=== PATIENT | male | born 1965 | race Caucasian/White ===

== ENCOUNTER → 2022-03-12 | Outpatient (CLI) | payer OTHER ==
[~2022-03-12] MED LIST: LEXISCAN IV ONE
--- NOTE | 2022-03-12 14:45 | PCM.ECHO ---
APPROVED REPORT EXAM: Comprehensive 2D, Doppler, and color-flow Echocardiogram. Patient Location: OUT-PATIENT Indications Dyspnea Chest Pain 2D Dimensions LVOT Diameter 2.37 (1.8-2.4cm) LVEF(%) 65.39 (>50%) M-Mode Dimensions RVDd 1.40 (2.1-3.2cm) Left Atrium(MM) 2.95 (2.5-4.0cm) IVSd 1.00 (0.7-1.1cm) Aortic Root 2.75 (2.2-3.7cm) LVDd 5.00 (4.0-5.6cm) Aortic Cusp Exc 1.75 (1.5-2.0cm) PWd 0.75 (0.7-1.1cm) MV EPSS 0.69 (<0.5cm) IVSs 1.70 cm FS (%) 26.50 % LVDs 3.70 (2.0-3.8cm) ESV(Teich) 58.39 ml PWs 1.30 cm LVEF(%) 51.65 (>50%) Volumes Biplane 2D LV Volumes Biplane 2D LA Volumes LVEDv A4C 107.25 mL LA ESV Index LVESv A4C 37.12 mL Aortic Valve AoV Peak Lg. 0.80 m/s AoV VTI 16.05 cm AO Peak GR. 2.85 mmHg AO Mean GR. 1.45 mmHg LVOT VTI 17.02 cm LVOT Peak Lg. 0.74 m/s STEVE(VTI)/BSA 4.66 cm2/m2 STEVE (VTI) 4.66 cm2 Mitral Valve MV E Velocity 1.05m/s MR Peak Gr. 115.05mmHg MV A Velocity 0.95m/s TDI Lateral E' P. V 0.08m/s Medial E' P. V 0.09m/s Pulmonary Valve PV Peak Velocity 0.45m/s PV Peak Grad. 0.95mmHg RVOT VTI 12.97cm Tricuspid Valve TR P. Velocity 2.15m/s RAP ESTIMATE 10.00mmHg TR Peak Gr. 18.59mmHg RVSP 28.59mmHg LEFT VENTRICLE The left ventricle is normal size. The left ventricular systolic function is normal. The left ventricular ejection fraction is within the normal range. There is normal left ventricular wall thickness. There is normal LV segmental wall motion. There is no ventricular septal defect visualized. No left ventricle thrombus noted on this study. LVEF is 60-65%. RIGHT VENTRICLE The right ventricle is normal size. The right ventricular systolic function is normal. There is normal right ventricular wall thickness. ATRIA The left atrium size is normal. The right atrium size is normal. Atrial septum is bowed toward the right, consistent with elevated left atrial pressures. AORTIC VALVE The aortic valve is normal in structure. There is no aortic valvular stenosis. No aortic regurgitation is present. There is no aortic valvular vegetation. MITRAL VALVE The mitral valve is normal in structure. There is no mitral valve stenosis. Moderate mitral regurgitation. There is no evidence of mitral valve vegetations. TRICUSPID VALVE The tricuspid valve is normal in structure. There is no tricuspid valve stenosis. Mild tricuspid regurgitation. PULMONIC VALVE Pulmonic valve is not well visualized. There is no pulmonic valvular stenosis. Mild pulmonic regurgitation. GREAT VESSELS The aortic root is normal in size. Pulmonary artery is not well visualized. Aortic arch is not well visualized. The IVC is normal in size and collapses >50% with inspiration. PERICARDIUM There is no pericardial effusion. There is no pleural effusion. Other Information Study Quality: Fair <Conclusion> The left ventricular systolic function is normal. LVEF is 60-65%. Moderate mitral regurgitation. Mild tricuspid regurgitation. Mild pulmonic regurgitation. Electronically signed by : BENITA ZAMUDIO. 03/12/2022 14:45:09
--- NOTE | 2022-03-13 03:26 | STRESS ---
DATE OF SERVICE: 03/12/2022 DICTATOR NAME: BENITA ZAMUDIO CARDIAC STRESS TEST INDICATION: Chest pain. FINDINGS: Baseline EKG shows normal sinus rhythm with poor R-wave progression, cannot exclude an anterior septal infarct. Stress EKG shows normal sinus rhythm, unchanged from baseline. At the end of recovery, EKG shows normal sinus rhythm, unchanged from baseline. Baseline blood pressure is 138/83 and remained the same during stress. At the end of recovery, the blood pressure was 124/79. Baseline heart rate 69 beats per minute and adela to 84 beats per minute during stress. At the end of recovery, the heart rate is 88 beats per minute. Blood pressure and heart rate were appropriate for stress. There were no significant symptoms noted during stress. There were no arrhythmias noted during stress. EKG portion of stress test is negative for myocardial ischemia. Nuclear images were obtained with a rest dose of 11.65 mCi technetium-99 sestamibi, and a stress dose of 35.9 mCi technetium 99 sestamibi. Nuclear images revealed a moderate-sized area of reversible perfusion defect involving the inferior wall suggestive of myocardial ischemia. There is no evidence of myocardial infarction. Left ventricular ejection fraction is 58%. EDV is 82 mL, ESV is 34 mL. The left ventricle is normal in size. Gated motion images showed normal wall motion across all segments of the left ventricle. TID is 1.2. There is evidence of diaphragmatic attenuation artifact. IMPRESSION: 1. There is a moderate-sized area of reversible perfusion defect involving the septal wall suggestive of myocardial ischemia. 2. There is no evidence of myocardial infarction. 3. Diaphragmatic attenuation artifact is present. 4. This is an abnormal study. Recommend left heart catheterization. Ángela DIAS D.O. DR: SAM/NAZARIO TID: [id number] RECEIPT: [id number]
== END | disposition home or self-care (01) ==
LOC: RAD 09:45
PROVIDERS: ATTEND Internal Medicine Interventional Cardiology
DX: I08.8 Other rheumatic multiple valve diseases (principal); R07.9 Chest pain, unspecified; R06.02 Shortness of breath
CPT/HCPCS: 78452; 93017; 93306; A9500; J2785

== ENCOUNTER 2022-03-27 09:10 | Day surgery (SDC) | payer OTHER ==
[2022-03-21 14:10] VITALS: BP 122/78
--- NOTE | 2022-03-21 14:28 | PCM.EKG ---
Formerly [facility] Test Date: 2022-03-21 Test Time: 14:18:38 Pat Name: JERROD MOORE Department: Room: Gender: M Road Contractor: CHANTE : 1965 Requested By: BENITA ZAMUDIO Order Number: [id number] Reading MD: Measurements Intervals [place] Rate: 67 P: 53 MS: 188 QRS: 78 QRSD: 94 T: 72 QT: 410 QTc: 433 Interpretive Statements Normal sinus rhythm No previous ECG available for comparison Please click the below link to view image of tracing.
[2022-03-21 14:33] LABS: BASOPHIL # 0.1 10^3/uL (0.0-0.1); EOSINOPHIL # 0.2 10^3/uL (0.0-0.2); EOSINOPHIL % 2.3 % (0.0-5.0); LYMPHOCYTES # 1.48 10^3/uL1 (1.0-4.8); LYMPHOCYTES % 21.4 % (24.0-44.0); MEAN CORP HGB 30.5 pg (26-34); MONOCYTES # 0.9 10^3/uL (0.3-0.8); MONOCYTES % 12.9 % (5.0-12.0); NEUTROPHIL # 4.3 10^3/uL (1.8-7.7); PLATELET COUNT 241 10^3/uL (150-400); RED CELL DISTRIBUTION WIDTH 12.3 % (11.5-14.5)
[2022-03-21 14:52] LABS: CARBON DIOXIDE 30.2 mmol/L (20.0-32)
[2022-03-27] VITALS (14 sets, daily range): BP systolic 107–135; BP diastolic 68–85
[~2022-03-27] VITALS: Ht 185.4 cm; Wt 75.3 kg
[~2022-03-27 09:10] MED LIST changes: +AMLO-170 PO; +ATOR10TA PO; +ESCI20TA8 PO; +LEVO5TAB2 PO; -LEXISCAN IV ONE; +LISI20TA21 PO; +MONT-38 PO; +NITR0.4T26 SL; +NS 1000ML 1,000 ML IV SCH; +NS 1000ML 1,000 ML ONE
[2022-03-27] MEDS ORDERED: SUBLIMAZE ONE (09:57)
[2022-03-27] MEDS ORDERED: HEPARIN ONE (09:57)
[2022-03-27] MEDS ORDERED: XYLOCAINE ONE (09:58)
[2022-03-27] MEDS ORDERED: VERSED ONE (09:58)
--- NOTE | 2022-03-28 00:48 | [facility] ---
DATE OF SERVICE: 03/27/2022 DICTATOR NAME: BENITA ZAMUDIO, CARDIAC CATHETERIZATION REPORT INDICATIONS: Abnormal cardiac stress test. This is a 56-year-old male who was evaluated in the outpatient setting where he underwent cardiac ischemic workup. He was then set up for left heart catheterization after informed consents were obtained, PROCEDURES PERFORMED: 1. Selective coronary angiography. 2. Left ventriculography. 3. Hemostasis established using a TR band. DESCRIPTION OF PROCEDURE: Access was obtained using a 6-Azeri glide sheath to cannulate the right radial artery. Diagnostic angiography was then carried out using a [place] 4 catheter to engage the RCA. The RCA was noted to be dominant with a focal 40-50% lesion in the proximal segment. It bifurcates distally to a right posterior descending artery and a right posterolateral artery. Both vessels are noted to have mild luminal irregularities. The remaining segments of the RCA is noted to have mild luminal irregularities. The [place] 4 catheter was then used to engage the left main. The left main was noted to be short and angiographically normal. It bifurcates into a left anterior descending artery and the left circumflex artery. Left anterior descending artery is noted to have mild luminal irregularities. It runs in the interventricular groove to the apex to form a type 2 LAD. It tapers into a small caliber vessel distally. It gives rise to a large caliber diagonal branch that is noted to have mild luminal irregularities. The left circumflex artery is noted to be nondominant and with mild luminal irregularities. It gives rise to 2 obtuse marginal branches that are noted to have mild luminal irregularities. The first obtuse marginal branch is a very large caliber vessel. The [place] 4 catheter was then used to cross the aortic valve into the left ventricle. Left ventriculography was performed. LVEF was noted to be 65%. LVEDP was noted to be 11. Upon pullback of the [place] 4 catheter, there was no gradient across the aortic valve. The [place] 4 catheter was then taken out and hemostasis was established using a TR band. 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 There were no complications. IMPRESSION: 1. Nonobstructive coronary artery disease. 2. Selective coronary angiography. 3. Left ventriculography. 4. Hemostasis established using a TR band. 5. LVEF 65% 6. LVEDP 11 RECOMMENDATIONS: No coronary intervention is necessary at this time. Lifestyle modification factors have been strongly advised. The patient will be discharged home today to follow up with me in the clinic in 2-3 weeks. Ángela DIAS D.O. DR: CLAUDE TID: [id number] RECEIPT: [id number] MTDD
== END 2022-03-27 14:00 | disposition home or self-care (01) ==
LOC: SDC 09:10
PROVIDERS: ATTEND Internal Medicine Interventional Cardiology
DX: I25.10 Atherosclerotic heart disease of native coronary artery without angina pectoris (principal); I10 Essential (primary) hypertension; E78.5 Hyperlipidemia, unspecified; G47.30 Sleep apnea, unspecified; J44.9 Chronic obstructive pulmonary disease, unspecified; F34.1 Dysthymic disorder; Z98.890 Other specified postprocedural states; Z90.49 Acquired absence of other specified parts of digestive tract; Z82.49 Family history of ischemic heart disease and other diseases of the circulatory system; Z87.891 Personal history of nicotine dependence; Z72.89 Other problems related to lifestyle; Z79.01 Long term (current) use of anticoagulants
CPT/HCPCS: 36415; 80053; 85025; 85610; 85730; 93005; 93458; 99152; C1887; C1894; J1644 ×2; J2250; J3010; J7030; Q9967; C1769

== ENCOUNTER → 2023-03-12 | Outpatient (CLI) | payer OTHER ==
[~2023-03-12] MED LIST changes: -NS 1000ML 1,000 ML IV SCH; -NS 1000ML 1,000 ML ONE
--- NOTE | 2023-03-12 14:40 | PCM.ECHO ---
APPROVED REPORT EXAM: Comprehensive 2D, Doppler, and color-flow Echocardiogram. Patient Location: OUT-PATIENT Indications Hypertension/HDD Nonrheumatic Tricuspid valve insufficiency 2D Dimensions RVDd 2.55 cm (0.4-1.4cm/m2) LVOT Diameter 2.20 (1.8-2.4cm) LVEF(%) 65.06 (>50%) M-Mode Dimensions RVDd 1.35 (2.1-3.2cm) Left Atrium(MM) 2.85 (2.5-4.0cm) IVSd 1.10 (0.7-1.1cm) Aortic Root 2.55 (2.2-3.7cm) LVDd 4.80 (4.0-5.6cm) Aortic Cusp Exc 1.90 (1.5-2.0cm) PWd 1.05 (0.7-1.1cm) MV EPSS 0.33 (<0.5cm) IVSs 2.00 cm FS (%) 38.50 % LVDs 2.95 (2.0-3.8cm) ESV(Teich) 34.34 ml PWs 1.40 cm LVEF(%) 68.73 (>50%) Volumes Biplane 2D LV Volumes Biplane 2D LA Volumes LVEDv A4C 99.18 mL LA ESV Index LVESv A4C 34.65 mL Aortic Valve AoV Peak Lg. 0.90 m/s AoV VTI 18.75 cm AO Peak GR. 3.50 mmHg AO Mean GR. 1.80 mmHg STEVE (VMAX) 3.45 cm2 Mitral Valve MV E Velocity 0.80m/s MR Peak Gr. 73.30mmHg MV DECEL TIME 282.15ms MV A Velocity 0.75m/s TDI E/Lateral E' 0.80 E/Medial E' 0.85 Tricuspid Valve TR P. Velocity 1.30m/s RAP ESTIMATE 5.00mmHg TR Peak Gr. 7.38mmHg LEFT VENTRICLE The left ventricle is normal size. The left ventricular systolic function is normal. The left ventricular ejection fraction is within the normal range. There is normal left ventricular wall thickness. There is normal LV segmental wall motion. Srage 1 diastolic dysfunction is present (impaired relaxation pattern). There is no ventricular septal defect visualized. No left ventricle thrombus noted on this study. LVEF is 65-70%. RIGHT VENTRICLE The right ventricle is normal size. The right ventricular systolic function is normal. There is normal right ventricular wall thickness. ATRIA The left atrium size is normal. The right atrium size is normal. The interatrial septum is intact with no evidence for an atrial septal defect. AORTIC VALVE The aortic valve is normal in structure. There is no aortic valvular stenosis. No aortic regurgitation is present. There is no aortic valvular vegetation. MITRAL VALVE The mitral valve is normal in structure. There is no mitral valve stenosis. Moderate mitral regurgitation. There is no evidence of mitral valve vegetations. TRICUSPID VALVE The tricuspid valve is normal in structure. There is no tricuspid valve stenosis. Mild tricuspid regurgitation. There is no tricuspid valve vegetations. PULMONIC VALVE Pulmonic valve is not well visualized. There is no pulmonic valvular stenosis. There is no pulmonic valvular regurgitation. GREAT VESSELS The aortic root is normal in size. Pulmonary artery is not well visualized. Aortic arch is not well visualized. The IVC is normal in size and collapses >50% with inspiration. PERICARDIUM There is no pericardial effusion. There is no pleural effusion. Other Information Study Quality: Fair <Conclusion> The left ventricular systolic function is normal. LVEF is 65-70%. Srage 1 diastolic dysfunction is present (impaired relaxation pattern). Moderate mitral regurgitation. Mild tricuspid regurgitation. Electronically signed by : BENITA ZAMUDIO. 03/12/2023 14:39:59
== END | disposition home or self-care (01) ==
LOC: RAD 12:43
PROVIDERS: ATTEND Nurse Practitioner Family
DX: I08.1 Rheumatic disorders of both mitral and tricuspid valves (principal); I10 Essential (primary) hypertension
CPT/HCPCS: 93306